=== PATIENT | female | born 1975 | race Caucasian/White ===

== ENCOUNTER 2022-01-24 21:43 | Emergency (ER) | payer BC, OTHER ==
[2022-01-24 21:55] VITALS: BP 133/84; PULSE 70; RESP 17; TEMP 98.6; BMI 30.9
[2022-01-24] MEDS ORDERED: MAG HYDROX/AL HYDROX/SIMETH -MYLANTA- ORAL SUSPENSION PO ONE (21:57)
[2022-01-24] MEDS ORDERED: ONDANSETRON 4 MG/2 ML VIAL IVPB ONE (21:57)
[2022-01-24] MEDS ORDERED: ACETAMINOPHEN 1000 MG/100 ML BAG IVPB ONE (21:57)
[2022-01-24] MEDS ORDERED: SODIUM CHLORIDE 0.9% 500 ML INFUS.BAG IV ONE (21:57)
[2022-01-24] MEDS ORDERED: FAMOTIDINE 20 MG/50 ML IVPB 20 MG in PREMIX 50 IVPB ONE (21:57)
[2022-01-24] MEDS ORDERED: KETOROLAC TROMETHAMINE 15 MG/ML VIAL IVPUSH ONE (21:57)
[2022-01-24 22:18] LABS: HEMATOCRIT 38.1 % (32.4-45.2); HEMOGLOBIN 13.1 G/dL (10.7-15.3); MCH 30.6 pg (25.7-33.7); MCHC 34.3 g/dl (32.0-36.0); MEAN CELL VOLUME 89.3 fl (80-96); MEAN PLT VOLUME 9.7 fl (7.5-11.1); PLATELET COUNT 248.9 10^3/uL (134-434); RBC 4.27 10^6/uL (3.60-5.2); RDW 20.5 % (11.6-15.6); WHITE BLOOD COUNT 8.4 10^3/uL (4.0-10.8)
[2022-01-24] MEDS ORDERED: KETOROLAC TROMETHAMINE 15 MG/ML VIAL ONE (22:23)
[2022-01-24] MEDS ORDERED: FAMOTIDINE 20 MG/50 ML IVPB 20 MG/50 ML MG IVPB ONE (22:23)
[2022-01-24] MEDS ORDERED: ONDANSETRON 4 MG/2 ML VIAL ONE (22:23)
[2022-01-24] MEDS ORDERED: ACETAMINOPHEN INJECTION 100 ML IVPB ONE (22:23)
[2022-01-24] MEDS ORDERED: MAG HYDROX/AL HYDROX/SIMETH 30 ML UNIT-DOSE CUP ONE (22:24)
[2022-01-24 22:35] LABS: ALK PHOS 58 U/L (45-117); ANION GAP 12 MMOL/L (8-16); BILIRUBIN,TOTAL 0.6 mg/dl (0.2-1); CALCIUM 9.5 mg/dl (8.5-10); CHLORIDE 103 mmol/L (98-107); CO2 23 mmol/L (21-32); CREATININE 0.7 mg/dl (0.55-1.3); GLUCOSE,RANDOM 90 mg/dl (74-106); SGOT/AST 15 U/L (15-37); SGPT/ALT 16 U/L (13-61); SODIUM 138 mmol/L (136-145); TOT PROT 6.9 g/dl (6.4-8.2)
[2022-01-24 22:38] LABS: PLATELET ESTIMATE ADEQUATE
[2022-01-25 00:58] LABS: LIPASE 121 U/L (73-393)
== END 2022-01-24 23:26 | disposition home or self-care (01) ==
LOC: FER 21:43
PROC: 3E033GC Introduction of Other Therapeutic Substance into Peripheral Vein, Percutaneous Approach (ICD-10-PCS; principal; 2022-01-24)
DX: R10.13 Epigastric pain (principal)
CPT/HCPCS: 36415; 71046-TC-FY; 80053; 83690; 84484; 85027; 93005; 99285-25

== ENCOUNTER 2022-04-17 18:13 | Inpatient (IN) | payer BC, OTHER ==
[2022-04-17] MEDS ORDERED: FAMOTIDINE 20 MG/50 ML IVPB 20 MG/50 ML MG IVPB ONE ×2 (18:25→18:41)
[2022-04-17] MEDS ORDERED: SODIUM CHLORIDE 0.9% 500 ML INFUS.BAG IV ONE (18:25)
[2022-04-17] MEDS ORDERED: ONDANSETRON 4 MG/2 ML VIAL IVPUSH ONE (18:25)
[2022-04-17] MEDS ORDERED: MAG HYDROX/AL HYDROX/SIMETH 30 ML UNIT-DOSE CUP PO ONE (18:25)
[2022-04-17] MEDS ORDERED: MAG HYDROX/AL HYDROX/SIMETH 30 ML UNIT-DOSE CUP ONE (18:41)
[2022-04-17] MEDS ORDERED: ONDANSETRON 4 MG/2 ML VIAL ONE (18:41)
[2022-04-17 18:48] LABS: HEMATOCRIT 41.7 % (32.4-45.2); HEMOGLOBIN 14.1 G/dL (10.7-15.3); MCH 31.8 pg (25.7-33.7); MCHC 33.9 g/dl (32.0-36.0); MEAN CELL VOLUME 93.6 fl (80-96); MEAN PLT VOLUME 9.3 fl (7.5-11.1); PLATELET COUNT 229.5 10^3/uL (134-434); RBC 4.45 10^6/uL (3.60-5.2); RDW 15.9 % (11.6-15.6); WHITE BLOOD COUNT 8.7 10^3/uL (4.0-10.8)
[2022-04-17 19:05] LABS: ALBUMIN 3.9 g/dl (3.4-5.0); BILIRUBIN,TOTAL 2.1 mg/dl (0.2-1); CALCIUM 8.3 mg/dl (8.5-10); CREATININE 0.7 mg/dl (0.55-1.3); MAGNESIUM 1.8 mg/dL (1.8-2.4); TOT PROT 6.9 g/dl (6.4-8.2)
[2022-04-17 19:06] LABS: PLATELET ESTIMATE ADEQUATE
[2022-04-17 20:00] LABS: EPITHELIAL CELLS RARE /hpf
[2022-04-17] MEDS ORDERED: LIDOCAINE VISCOUS 2% ORAL/TOP 15 ML UNIT-DOSE CUP ONE (21:36)
[2022-04-17] MEDS ORDERED: ACETAMINOPHEN 1000 MG/100 ML BAG IVPB ONE (23:09)
[2022-04-17] MEDS ORDERED: ACETAMINOPHEN INJECTION 100 ML IVPB ONE (23:09)
[2022-04-17 23:38] VITALS: BMI 33.1
[2022-04-17] MEDS: DEXTROSE 5%-0.45% SALINE 1,000 ML IV SCH (23:43)
[2022-04-18] MEDS ORDERED: ONDANSETRON 4 MG/2 ML VIAL IVPUSH PRN
[2022-04-18] MEDS ORDERED: ALBUTEROL SO4 HFA INHALER IH PRN (05:15)
[2022-04-18 08:50] LABS: ALBUMIN 3.6 g/dl (3.4-5.0); BILIRUBIN,TOTAL 1.4 mg/dl (0.2-1); CALCIUM 8.5 mg/dl (8.5-10); CREATININE 0.6 mg/dl (0.55-1.3); TOT PROT 6.3 g/dl (6.4-8.2)
[2022-04-18 11:09] LABS: BASO % 0.2 % (0-2.0); EOS % 0.8 % (0-4.5); HEMATOCRIT 39.9 % (32.4-45.2); LYMPH % 10.9 % (8-40); MCH 30.8 pg (25.7-33.7); MCHC 32.7 g/dl (32.0-36.0); MEAN CELL VOLUME 94.2 fl (80-96); MONO % 12.2 % (3.8-10.2); NEUT % 75.9 % (42.8-82.8); PLATELET COUNT 245 10^3/uL (134-434); RBC 4.23 M/mm3 (3.60-5.2); RDW 16.8 % (11.6-15.6); WHITE BLOOD COUNT 5.2 K/mm3 (4.0-10.0)
[2022-04-18 19:58] VITALS: RESP 18
[2022-04-18] MEDS: ACETAMINOPHEN 1000 MG/100 ML BAG IVPB PRN (20:11)
[2022-04-18] MEDS: DEXTROSE 5%-0.45% SALINE 1,000 ML IV SCH (23:30)
[2022-04-19 08:24] LABS: ALBUMIN 3.5 g/dl (3.4-5.0); BILIRUBIN,TOTAL 1.2 mg/dl (0.2-1); CALCIUM 8.7 mg/dl (8.5-10); CREATININE 0.7 mg/dl (0.55-1.3); TOT PROT 6.1 g/dl (6.4-8.2)
[2022-04-19] MEDS: BUDESONIDE/FORMETEROL FUMARATE 80/4.5 mcg INHALER IH SCH ×2 (09:44→21:28)
[2022-04-19] MEDS ORDERED: BENZOCAINE/MENTH/CETYLPYRD CL 1 EACH LOZENGE MM PRN (09:59)
[2022-04-19 10:58] LABS: BASO % 0.4 % (0-2.0); EOS % 3.1 % (0-4.5); LYMPH % 18.5 % (8-40); MCH 31.3 pg (25.7-33.7); MCHC 33.3 g/dl (32.0-36.0); MEAN PLT VOLUME 9.5 fl (7.5-11.1); MONO % 12.2 % (3.8-10.2); NEUT % 65.8 % (42.8-82.8); PLATELET COUNT 231 10^3/uL (134-434); RBC 4.15 M/mm3 (3.60-5.2); RDW 16.7 % (11.6-15.6); WHITE BLOOD COUNT 5.5 K/mm3 (4.0-10.0)
[2022-04-19] MEDS: KCL 10 MEQ IVPB 10 MEQ/100 ML INFUS.BAG IVPB SCH ×3 (11:52→13:38)
[2022-04-19] MEDS: ACETAMINOPHEN 1000 MG/100 ML BAG IVPB PRN (15:58)
[2022-04-19] MEDS ORDERED: DEXTROSE 5%-0.45% SALINE 1,000 ML with POTASSIUM CHLORIDE 10 MEQ IV SCH (16:08)
[2022-04-20] MEDS: BUDESONIDE/FORMETEROL FUMARATE 80/4.5 mcg INHALER IH SCH (09:28)
[2022-04-20] MEDS ORDERED: ENOXAPARIN NA (PORCINE) 40 MG/0.4 ML DISP.SYRIN SQ SCH (10:00)
[2022-04-20] MEDS ORDERED: POLYETHYLENE GLYCOL (HEALTHYLAX) 3350 17 GM PACKET PO SCH (10:00)
[2022-04-20 14:22] VITALS: TEMP 98.5
[2022-04-20 18:48] VITALS: BP 114/81; PULSE 80
== END 2022-04-20 18:30 | disposition home or self-care (01) | DRG 389 ==
LOC: FER 18:13 → FM/S 22:53 → OBSVTOIN 04-19 15:38
PROVIDERS: ADMIT Internal Medicine; ATTEND Internal Medicine
DX: K56.609 Unspecified intestinal obstruction, unspecified as to partial versus complete obstruction (principal); E87.1 Hypo-osmolality and hyponatremia; J20.5 Acute bronchitis due to respiratory syncytial virus; E03.9 Hypothyroidism, unspecified; K59.00 Constipation, unspecified; E87.6 Hypokalemia; R31.29 Other microscopic hematuria; J45.909 Unspecified asthma, uncomplicated; E78.5 Hyperlipidemia, unspecified
CPT/HCPCS: 0241U-QW; 36415; 71045-TC-FY; 71260-TC; 74019-TC-FY; 74177-TC; 80053; 81003; 81015; 83690; 83735; 84443; 85025; 85027; 87086; 93005; 99285-25; G0378; Q9967